=== PATIENT | male | born 1945 | race Caucasian/White ===

== ENCOUNTER → 2021-12-13 | Day surgery (SDC) | payer MEDICARE, OTHER ==
[~2021-12-13] MED LIST: Cefuroxime 10 MG/ML SYRINGE EYELF SCH; Lidocaine 1% PF 2 ML SDV INJECT SCH; Pilocarpine 4% Ophth Soln 15 ML Bot EYELF SCH
[2021-12-13] MEDS: Polymyxin B/Trimethoprim 10 ML Bottle EYELF SCH ×3 (14:45→16:37)
[2021-12-13] MEDS: Brimonidine 0.2% Ophth Soln 5 ML Bottle EYELF SCH ×3 (14:50→16:37)
[2021-12-13] MEDS: Phenylephrine 2.5% Ophth Soln 2 ML Bot EYELF SCH ×5 (14:56→16:11)
[2021-12-13] MEDS: Tropicamide 1% Ophth Soln 15 ML Bottle EYELF SCH ×4 (15:00→15:55)
[2021-12-13] MEDS: Tetracaine HCl/PF 0.5% 4 ML Bottle EYEBOTH SCH ×4 (15:57→16:23)
== END ==
LOC: JD.SDS 16:33
PROVIDERS: ATTEND Ophthalmology
DX: H25.813 Combined forms of age-related cataract, bilateral (principal); H40.003 Preglaucoma, unspecified, bilateral; H16.103 Unspecified superficial keratitis, bilateral; H16.223 Keratoconjunctivitis sicca, not specified as Sjogren's, bilateral; D31.32 Benign neoplasm of left choroid; H02.834 Dermatochalasis of left upper eyelid; H02.831 Dermatochalasis of right upper eyelid; H91.90 Unspecified hearing loss, unspecified ear; Z79.899 Other long term (current) drug therapy
CPT/HCPCS: 66984; C1780; J0697